=== PATIENT | male | born 1975 | race Caucasian/White ===

== ENCOUNTER 2021-03-01 19:53 | Emergency (ER) | payer OTHER ==
[2021-03-01 20:15] VITALS: TEMP 100.4
[2021-03-01] MEDS ORDERED: ONDANSETRON 4 MG/2 ML VIAL IVP STA (20:20)
[2021-03-01] MEDS ORDERED: MORPHINE SULFATE 4 MG/ML SYRINGE IVP STA (20:20)
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
[2021-03-01 21:07] LABS: Basophils % (A) 0 %; Eosinophils # (A) 0.1 k/uL (0-0.7); Eosinophils % (A) 0 %; HCT 40.4 % (39.0-53.0); HGB 14.2 gm/dL (13.0-17.5); Lymphocytes # (A) 1.3 k/uL (1.0-4.8); Lymphocytes % (A) 10 %; MCH 33.2 pg (25.0-35.0); MCHC 35.1 g/dL (31.0-37.0); MCV 94.4 fL (80.0-100.0); Mean Platelet Volume 6.6; Monocytes # (A) 0.7 k/uL (0-1.0); Monocytes % (A) 5 %; Neutrophils # (A) 10.7 k/uL (1.3-7.7); Neutrophils % (A) 83 %; Platelet Count 230 k/uL (150-450); RBC 4.28 m/uL (4.30-5.90); RDW 12.4 % (11.5-15.5); WBC 12.9 k/uL (3.8-10.6)
[2021-03-01 21:16] LABS: INR 0.9 (<1.2); Partial Thromboplastin Time 22.3 sec (22.0-30.0); Prothrombin Time 9.9 sec (9.0-12.0)
[2021-03-01 21:21] LABS: ALT 41 U/L (4-49); AST 52 U/L (17-59); African American GFR (CKD) >90 (>60 ml/min/1.73 sqM); Albumin 4.4 g/dL (3.5-5.0); Alcohol <10 mg/dL; Alkaline Phosphatase 64 U/L (38-126); Anion Gap 7 mmol/L; Blood Urea Nitrogen 15 mg/dL (9-20); Calcium 9.5 mg/dL (8.4-10.2); Carbon Dioxide 25 mmol/L (22-30); Chloride 103 mmol/L (98-107); Glucose 106 mg/dL (74-99); Non-African American GFR(CKD) >90 (>60 ml/min/1.73 sqM); Potassium 3.8 mmol/L (3.5-5.1); Sodium 135 mmol/L (137-145); Total Bilirubin 0.2 mg/dL (0.2-1.3); Total Protein 6.8 g/dL (6.3-8.2)
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
[2021-03-01 23:31] VITALS: BP 128/69; PULSE 74; RESP 18
== END 2021-03-01 23:32 | disposition home or self-care (01) ==
LOC: EC 19:53
DX: S50.811A Abrasion of right forearm, initial encounter (principal); S80.12XA Contusion of left lower leg, initial encounter; R10.30 Lower abdominal pain, unspecified; Z88.0 Allergy status to penicillin; V49.59XA Passenger injured in collision with other motor vehicles in traffic accident, initial encounter; Y92.410 Unspecified street and highway as the place of occurrence of the external cause
CPT/HCPCS: 99284; 96374; 96375; 36415; 86900; 86901; 80053; 83605; 84484; 85025; 85610; 85730; 86850; 80320; 73590; 71045; 74177; J2270; J2405; Q9967